=== PATIENT | male | born 1975 | race Caucasian/White ===

== ENCOUNTER 2018-05-10 01:56 | Emergency (ER) | payer OTHER ==
[~2018-05-10] VITALS: Ht 170.2 cm; Wt 68.0 kg
[2018-05-10 01:59] VITALS: BP 139/91
[2018-05-10] MEDS ORDERED: CLINDAMYCIN HCL 150 MG CAPSULE PO ONE ×2 (03:00→03:02)
--- NOTE | 2018-05-10 03:06 | NUR ---
Patient discharged to police officers in stable condition. Written and verbal after care instructions given. Patient verbalizes understanding of instruction. pt in custody with lapd. pt handcuffed and walked out by ou of ED.
== END 2018-05-10 03:09 ==
LOC: ER 01:57
DX: L02.512 Cutaneous abscess of left hand (principal); Z59.0 Homelessness
CPT/HCPCS: 99283; A4606